=== PATIENT | female | born 1940 ===

== ENCOUNTER 2017-05-18 16:35 | Emergency (ER) | payer OTHER, MEDICARE ==
[2017-05-18 16:46] VITALS: BMI 26.5
[2017-05-18 17:05] VITALS: RESP 18
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
--- NOTE | 2017-05-18 17:55 | CT ---
PROCEDURE: CT Cervical Spine without contrast HISTORY: [facility] COMPARISON: None available. TECHNIQUE: Axial computed tomography images were obtained of the cervical spine without the use of intravenous contrast. Coronal and sagittal reformatted images were created and reviewed. Radiation dose: Total exam DLP = 422.77 mGy-cm. This CT exam was performed using one or more of the following dose reduction techniques: Automated exposure control, adjustment of the mA and/or kV according to patient size, and/or use of iterative reconstruction technique. FINDINGS: VERTEBRAE: The vertebral bodies are maintained in height. There is a geographic circumscribed lesion in the anterior C3 vertebral body with internal bony spicules most likely representing a hemangioma. There is no evidence of fracture. Normal vertebral alignment is maintained. The atlantoaxial articulation and odontoid process are intact. DISCS/SPINAL CANAL/NEURAL FORAMINA: There is narrowing of multiple intervertebral disc spaces including C4-5, C5-6 and C6-7, consistent with degenerative disc disease. PARASPINAL SOFT TISSUES: Unremarkable. OTHER FINDINGS: None. IMPRESSION: No evidence of fracture or dislocation. Multilevel degenerative disc disease. Probable hemangioma of the C3 vertebral body.
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
[2017-05-18 19:53] VITALS: BP 170/80; PULSE 78; TEMP 98.7; O2SAT 99
--- NOTE | 2017-05-19 08:09 | CARD ---
APPROVED REPORT EKG Measurement Heart [id number] <Conclusion> Normal sinus rhythm Nonspecific T wave abnormality
== END 2017-05-18 19:51 | disposition home or self-care (01) ==
LOC: ED 16:35
DX: R07.9 Chest pain, unspecified (principal); R51 Headache; M25.511 Pain in right shoulder; S13.4XXA Sprain of ligaments of cervical spine, initial encounter; V49.59XA Passenger injured in collision with other motor vehicles in traffic accident, initial encounter; Y92.410 Unspecified street and highway as the place of occurrence of the external cause

== ENCOUNTER 2018-04-08 22:12 | Emergency (ER) | payer MEDICARE, MEDICAID ==
[2018-04-08 22:12] VITALS: BMI 26.5
[2018-04-08 23:07] VITALS: RESP 18; TEMP 98
--- NOTE | 2018-04-08 23:20 | ED PDOC ---
Arrival/HPI - General Chief Complaint: Headache Time Seen by Provider: 04/08/18 23:03 Historian: Patient - History of Present Illness Narrative History of Present Illness (Text): 04/08/18 23:20 77 year old Martiniquais speaking female, whose past medical history includes hypertension, hypothyroid, hypercholestremia, and Asthma, presents to the emergency department accompanied by her son, complaining of a worsening lesion to the back of the head and a headache for a couple weeks. Patient has an appointment with her PMD in 2 weeks. upon arrival, pt states mckenzie is very mild. pt is offered lab tests and imaging, but patient refused stating she will just followup with her PMD. Patient denies any fever, chills, chest pain, shortness of breath, nausea, vomiting, diarrhea, urinary symptoms, back pain, neck pain, dizziness, or any other complaints. refuses further w/u in er. PMD: Dr. 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) - Renal Hx Renal Failure: Yes - Endocrine/Metabolic Hx Hypothyroidism: Yes - Hematological/Oncological Hx Blood Transfusions: No Hx Blood Transfusion Reaction: No - Musculoskeletal/Rheumatological Hx Musculoskeletal Disorders: No Hx Falls: No - Genitourinary/Gynecological Hx Genitourinary Disorders: Yes (CEASEAREAN SECTION X1) - Psychiatric Hx Depression: No Hx Emotional Abuse: No Hx Physical Abuse: No Hx Substance Use: No - Past Surgical History Past Surgical History: No Previous - Surgical History Hx Cardiac Catheterization: Yes (2001) - Anesthesia Hx Anesthesia Reactions: (UNKNOWN) Hx Malignant Hyperthermia: No - Suicidal Assessment Feels Threatened In Home Enviroment: No Family/Social History - Physician Review Nursing Documentation Reviewed: Yes Family/Social History: No Known Family HX Smoking Status: Never Smoked Hx Alcohol Use: No Hx Substance Use: No Hx Substance Use Treatment: No Allergies/Home Meds Allergies/Adverse Reactions: Allergies FISH Allergy (Verified 04/08/18 23:03) RASH iodine Allergy (Verified 05/18/17 16:46) RASH shellfish derived Allergy (Verified 05/18/17 16:46) RASH Home Medications: Home Meds Medication Instructions Recorded Confirmed Aspirin [Aspir 81] 81 mg PO DAILY 11/30/13 04/08/18 Ezetimibe [Zetia] 10 mg PO DAILY 11/22/15 04/08/18 Olmesartan/Hydrochlorothiazide 1 tab PO DAILY 11/22/15 04/08/18 [Benicar Hct 40-12.5 mg Tablet] RX: Albuterol HFA [Ventolin HFA 90 1 puff INH PRN PRN 11/22/15 04/08/18 mcg/actuation (8 g)] Levothyroxine Sodium [Levoxyl] 75 mcg PO DAILY 05/18/17 04/08/18 Metoprolol Tartrate [Lopressor] 50 mg PO DAILY 05/18/17 04/08/18 Review of Systems - Physician Review All systems were reviewed & negative as marked: Yes - Review of Systems Constitutional: absent: Fevers, Other (Chills) Respiratory: absent: SOB Cardiovascular: absent: Chest Pain Gastrointestinal: absent: Diarrhea, Nausea, Vomiting Genitourinary Female: absent: Dysuria, Frequency, Hematuria Skin: Skin Lesions (back of head) Neurological: Headache. absent: Dizziness Physical Exam Vital Signs Reviewed: Yes Vital Signs Temp Pulse Resp BP Pulse Ox 04/08/18 23:03 98 F 72 18 167/83 H 99 Temperature: Afebrile Blood Pressure: Hypertensive Pulse: Regular Respiratory Rate: Normal Appearance: Positive for: Well-Appearing, Non-Toxic, Comfortable Pain Distress: None Mental Status: Positive for: Alert and Oriented X 3 - Systems Exam Head: Present: Atraumatic, Normocephalic, Other (lesion to back of the head) Pupils: Present: PERRL Extroacular Muscles: Present: EOMI Conjunctiva: Present: Normal Mouth: Present: Moist Mucous Membranes Neck: Present: Normal Range of Motion Respiratory/Chest: Present: Clear to Auscultation, Good Air Exchange. No: Respiratory Distress, Accessory Muscle Use Cardiovascular: Present: Regular Rate and Rhythm, Normal S1, S2. No: Murmurs Abdomen: No: Tenderness, Distention, Peritoneal Signs Back: Present: Normal Inspection Upper Extremity: Present: Normal Inspection. No: Cyanosis, Edema Lower Extremity: Present: Normal Inspection. No: Edema Neurological: Present: GCS=15, CN II-XII Intact, Speech Normal Skin: Present: Warm, Dry, Normal Color. No: Rashes Psychiatric: Present: Alert, Oriented x 3, Normal Insight, Normal Concentration Medical Decision Making ED Course and Treatment: 04/08/18 23:20 Impression: 77 year old female presents complaining of mild headache and lesion to the back of her head x 3 weeks. need outpt w/u. no thunderclap features. sytmposm x weeks neuro intact. declines zamora in er. Plan: -- Reassess and disposition Progress Notes: Offered patient lab test and imaging, but patient refused. Patient states she will just go followup with her PMD. 04/08/18 23:30 I have discussed the plan with the patient, who expresses understanding. Patient given the opportunity to ask question, all questions were answered and there is agreement with the plan to discharge the patient home. Patient is stable for discharge. Patient was instructed to follow up with physician or return if symptoms persist/worsen or new concerning symptoms arise. 04/09/18 02:40 - Scribe Statement The provider has reviewed the documentation as recorded by the Austin Chung Provider Scribe Attestation: All medical record entries made by the Scribe were at my direction and personally dictated by me. I have reviewed the chart and agree that the record accurately reflects my personal performance of the history, physical exam, medical decision making, and the department course for this patient. I have also personally directed, reviewed, and agree with the discharge instructions and disposition. Disposition/Present on Arrival - Present on Arrival Any Indicators Present on Arrival: No History of DVT/PE: No History of Uncontrolled Diabetes: No Urinary Catheter: No History of Decub. Ulcer: No History Surgical Site Infection Following: None - Disposition Have Diagnosis and Disposition been Completed?: Yes Diagnosis: Headache, Scalp lesion Disposition: HOME/ ROUTINE Disposition Time: 23:00 Condition: STABLE Discharge Instructions (ExitCare): Headache, Adult Additional Instructions: please follow up with your doctor/clinic. you are declining any lab test or imaging at this time, but you are able to return to any er with any concern at any time. Prescriptions: Acetaminophen/Butalbital/Caf [Fioricet] 1 tab PO Q8 PRN #10 tab PRN Reason: Headache Referrals: Chucky Cosby MD [Staff Provider] - Follow up with primary Forms: [employer] (Kyrgyz)
[2018-04-09 00:10] VITALS: BP 151/58; PULSE 75; O2SAT 100
== END 2018-04-08 23:30 | disposition home or self-care (01) ==
LOC: ED 22:12
DX: L98.8 Other specified disorders of the skin and subcutaneous tissue (principal); R51 Headache

== ENCOUNTER 2018-09-19 21:34 | Observation (INO) | payer MEDICARE, MEDICAID ==
[2018-09-19 21:34] VITALS: BMI 26.5
--- NOTE | 2018-09-19 21:56 | ED PDOC ---
Arrival/HPI - General Chief Complaint: Chest Pain Time Seen by Provider: 09/19/18 21:39 Historian: Patient - History of Present Illness Narrative History of Present Illness (Text): 09/19/18 21:53 78 year old Thai speaking female, whose past medical history includes hypertension, hypothyroid, hypercholestremia, and Asthma, presents to the emergency department accompanied by her grandson, complaining of intermittent chest discomfort throughout the day. Patient informs of some associated intermittent shortness of breath. Patient denies any leg pain, back pain, fever, chills, cough, or any other complaints. PMD: Dr. 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) - Renal Hx Renal Failure: Yes - Endocrine/Metabolic Hx Hypothyroidism: Yes - Hematological/Oncological Hx Blood Transfusions: No Hx Blood Transfusion Reaction: No - Musculoskeletal/Rheumatological Hx Musculoskeletal Disorders: No Hx Falls: No - Genitourinary/Gynecological Hx Genitourinary Disorders: Yes (CEASEAREAN SECTION X1) - Psychiatric Hx Depression: No Hx Emotional Abuse: No Hx Physical Abuse: No Hx Substance Use: No - Past Surgical History Past Surgical History: No Previous - Surgical History Hx Cardiac Catheterization: Yes (2001) - Anesthesia Hx Anesthesia Reactions: (UNKNOWN) Hx Malignant Hyperthermia: No - Suicidal Assessment Feels Threatened In Home Enviroment: No Family/Social History - Physician Review Nursing Documentation Reviewed: Yes Family/Social History: No Known Family HX Smoking Status: Never Smoked Hx Alcohol Use: No Hx Substance Use: No Hx Substance Use Treatment: No Allergies/Home Meds Allergies/Adverse Reactions: Allergies FISH Allergy (Verified 09/19/18 21:40) RASH iodine Allergy (Verified 09/19/18 21:40) RASH shellfish derived Allergy (Verified 09/19/18 21:40) RASH Home Medications: Home Meds Medication Instructions Recorded Confirmed Aspirin [Aspir 81] 81 mg PO DAILY 11/30/13 09/19/18 Albuterol HFA [Ventolin HFA 90 1 puff INH PRN PRN 11/22/15 09/19/18 mcg/actuation (8 g)] Olmesartan/Hydrochlorothiazide 1 tab PO DAILY 11/22/15 09/19/18 [Benicar Hct 40-12.5 mg Tablet] Levothyroxine Sodium [Levoxyl] 75 mcg PO DAILY 05/18/17 09/19/18 Metoprolol Tartrate [Lopressor] 50 mg PO DAILY 05/18/17 09/19/18 Levocetirizine Dihydrochloride 5 mg PO DAILY 09/19/18 09/19/18 [Xyzal] Meclizine HCl 12.5 mg PO BID 09/19/18 09/19/18 Montelukast [Singulair] 10 mg PO DAILY 09/19/18 09/19/18 Simvastatin [Zocor] 20 mg PO DAILY 09/19/18 09/19/18 Review of Systems - Physician Review All systems were reviewed & negative as marked: Yes - Review of Systems Constitutional: absent: Fevers, Night Sweats Respiratory: absent: Cough Cardiovascular: Chest Pain. absent: Calf Pain Musculoskeletal: absent: Back Pain Physical Exam Vital Signs Reviewed: Yes Vital Signs Temp Pulse Resp BP Pulse Ox 09/19/18 21:45 98.2 F 117 H 18 155/83 H 100 Temperature: Afebrile Blood Pressure: Hypertensive Pulse: Tachycardic Respiratory Rate: Normal Appearance: Positive for: Well-Appearing, Non-Toxic, Comfortable Pain Distress: None Mental Status: Positive for: Alert and Oriented X 3 - Systems Exam Head: Present: Atraumatic, Normocephalic Pupils: Present: PERRL Extroacular Muscles: Present: EOMI Conjunctiva: Present: Normal Mouth: Present: Moist Mucous Membranes Neck: Present: Normal Range of Motion Respiratory/Chest: Present: Clear to Auscultation, Good Air Exchange. No: Respiratory Distress, Accessory Muscle Use Cardiovascular: Present: Normal S1, S2, Tachycardic. No: Murmurs Abdomen: No: Tenderness, Distention, Peritoneal Signs Back: Present: Normal Inspection Upper Extremity: Present: Normal Inspection. No: Cyanosis, Edema Lower Extremity: Present: Normal Inspection. No: Edema, CALF TENDERNESS, Iliana's Sign Neurological: Present: GCS=15, CN II-XII Intact, Speech Normal Skin: Present: Warm, Dry, Normal Color. No: Rashes Psychiatric: Present: Alert, Oriented x 3, Normal Insight, Normal Concentration Medical Decision Making ED Course and Treatment: 09/19/18 22:01 Impression: 78 year old female presents with chest pain Plan: -- EKG -- Cardiac Iso, CMP, BNP -- CBC, D dimer, Platelets -- Chest X-ray -- Reassess and disposition Prior Visits: Notes and results from previous visits were reviewed. Progress Notes: EKG Reviewed by me, shows: Sinus tachycardia @118 bpm No acute changes 09/20/18 00:06 Case discussed with house doctor and Dr Anne who accept patient to hospitalist service. - Scribe Statement The provider has reviewed the documentation as recorded by the Lisaibe Chencho Weston Provider Scribe Attestation: All medical record entries made by the Scribe were at my direction and personally dictated by me. I have reviewed the chart and agree that the record accurately reflects my personal performance of the history, physical exam, medical decision making, and the department course for this patient. I have also personally directed, reviewed, and agree with the discharge instructions and disposition. Disposition/Present on Arrival - Present on Arrival Any Indicators Present on Arrival: No History of DVT/PE: No History of Uncontrolled Diabetes: No Urinary Catheter: No History of Decub. Ulcer: No History Surgical Site Infection Following: None - Disposition Have Diagnosis and Disposition been Completed?: Yes Diagnosis: Chest pain Disposition: HOSPITALIZED Disposition Time: 23:38 Patient Problems: Current Active Problems Problem Status Onset Chest pain Acute Condition: STABLE
[2018-09-19 22:59] LABS: HEMOGLOBIN 10.9 g/dL (12.0-16.0); MEAN CORPUSCULAR HEMOGLOBIN 29.1 pg (25.0-35.0); MEAN CORPUSCULAR HGB CONC 32.7 g/dl (31.0-37.0); RBC 3.74 10^6/uL (3.5-6.1); RED CELL DISTRIBUTION WIDTH 14.4 % (11.5-14.5); WHITE BLOOD COUNT 9.7 10^3/uL (4.5-11.0)
[2018-09-19 23:09] LABS: ALB/GLOB RATIO 1.1 (1.1-1.8); ALBUMIN 4.3 g/dL (3.0-4.8); ALT/SGPT 18 U/L (7-56); AST/SGOT 29 U/L (14-36); BLOOD UREA NITROGEN 35 mg/dL (7-21); CALCIUM 9.4 mg/dL (8.4-10.5); GFR NON-AFRICAN AMERICAN 40; INR 1.05; PARTIAL THROMBOPLASTIN TIME 29.5 Seconds (26.9-38.3); PROTHROMBIN TIME 11.6 SECONDS (9.4-12.5)
[2018-09-19 23:20] LABS: B-TYPE NATRIURETIC PEPTIDE 403 pg/mL (0-450); TROPONIN I < 0.01 ng/mL
--- NOTE | 2018-09-20 01:39 | CP.PCM.HP ---
<Mohsen Benavidez - Last Filed: 09/20/18 02:09> History of Present Illness - History of Present Illness History of Present Illness: PGY-1 History and Physical for Dr[address] Anne Patient is a 78 year old female with PMHx hypertension, CAD, hypothyroidism, hyperlipidemia, vertigo who presents with chief complaint of chest pain and dizziness. Patient states experiencing these symptoms for about one week. Patient notes that for past couple of weeks, she realizes she had been taking her allergy medications instead of her blood pressure medications. She complains of chest tightness and pressure across the front of her chest 6/10, non-radiating, as well as mild lightheadedness. She denies any cardiac history, though did have a cath in the past and was prescribed daily ASA which she no longer takes. Patient also reports occasional palpitations. Denies syncope, nausea, vomiting, shortness of breath. PMHx: HTN, hypothyroidism, CAD, hyperlipidemia, vertigo All: Fish, iodine, shellfish Surgeries: Cardiac cath 2013 Social: Denies alcohol, tobacco, drug use Family Hx: Noncontributory Medications -ASA 81 MG PO daily -Benicar (olmesartab/HCTZ) 40/12.5 mg PO daily -Ventolin 1 puff INH prn -Lopressor 50 mg PO daily -Levothyroxine 75 mcg PO daily -Zocor 20 mg PO daily -Meclizine 12.5 mg PO daily -Singluair 10 mg PO daily -Xyzal 5mg PO daily PMD: Dr. Sisi Limon Present on Admission - Present on Admission Any Indicators Present on Admission: No Review of Systems - Constitutional Constitutional: absent: Chills, Fever - EENT Eyes: absent: Blurred Vision, Change in Vision Nose/Mouth/Throat: absent: Nasal Congestion, Nasal Discharge - Cardiovascular Cardiovascular: Chest Pain, Chest Pain at Rest, Lightheadedness, Palpitations. absent: Dyspnea, Pedal Edema - Respiratory Respiratory: absent: Cough, Hemoptysis - Gastrointestinal Gastrointestinal: absent: Abdominal Pain, Diarrhea, Nausea, Vomiting - Genitourinary Genitourinary: absent: Dysuria, Flank Pain - Musculoskeletal Musculoskeletal: absent: Back Pain, Neck Pain - Neurological Neurological: absent: Dizziness, Numbness, Focal Weakness - Psychiatric Psychiatric: absent: Anxiety, Depression - Hematologic/Lymphatic Hematologic: absent: Easy Bleeding, Easy Bruising Past Patient History - Infectious Disease Hx of Infectious Diseases: None - Tetanus Immunizations Tetanus Immunization: Unknown - Past Social History Smoking Status: Never Smoked - CARDIAC Hx Hypertension: Yes Hx Peripheral Edema: Yes Other/Comment: cardiac cath - PULMONARY Hx Asthma: Yes - NEUROLOGICAL Hx Neurological Disorder: Yes (VERTIGO) Hx Dizziness: Yes - HEENT Hx HEENT Problems: (WEARS RX GLASSES) 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) - RENAL Hx Renal Failure: Yes - ENDOCRINE/METABOLIC Hx Hypothyroidism: Yes - HEMATOLOGICAL/ONCOLOGICAL Hx Blood Transfusions: No Hx Blood Transfusion Reaction: No - MUSCULOSKELETAL/RHEUMATOLOGICAL Hx Musculoskeletal Disorders: No Hx Falls: No - GENITOURINARY/GYNECOLOGICAL Hx Genitourinary Disorders: Yes (CEASEAREAN SECTION X1) - PSYCHIATRIC Hx Depression: No Hx Emotional Abuse: No Hx Physical Abuse: No Hx Substance Use: No - SURGICAL HISTORY Hx Cardiac Catheterization: Yes (2001) - ANESTHESIA Hx Anesthesia Reactions: (UNKNOWN) Hx Malignant Hyperthermia: No Meds Allergies/Adverse Reactions: Allergies Allergy/AdvReac Type Severity Reaction Status Date / Time FISH Allergy RASH Verified 09/19/18 21:40 iodine Allergy RASH Verified 09/19/18 21:40 shellfish derived Allergy RASH Verified 09/19/18 21:40 Physical Exam - Constitutional Appears: Non-toxic, No Acute Distress - Head Exam Head Exam: ATRAUMATIC, NORMOCEPHALIC - Eye Exam Eye Exam: EOMI - ENT Exam ENT Exam: Mucous Membranes Moist - Respiratory Exam Respiratory Exam: Clear to Auscultation Bilateral, NORMAL BREATHING PATTERN. absent: Rhonchi, Wheezes - Cardiovascular Exam Cardiovascular Exam: Tachycardia, +S1, +S2 - GI/Abdominal Exam GI & Abdominal Exam: Normal Bowel Sounds, Soft. absent: Tenderness - Extremities Exam Extremities exam: Positive for: normal inspection. Negative for: pedal edema, tenderness - Neurological Exam Neurological exam: Alert, CN II-XII Intact, Oriented x3 - Psychiatric Exam Psychiatric exam: Normal Affect, Normal Mood - Skin Skin Exam: Dry, Intact Results - Vital Signs Recent Vital Signs: Last Vital Signs Temp 98.2 F 09/19/18 21:45 Pulse 93 H 09/19/18 23:51 Resp 18 09/19/18 23:51 BP 125/61 09/19/18 23:51 Pulse Ox 100 09/19/18 23:51 - Labs Result Diagrams: 09/19/18 22:54 09/19/18 22:54 Labs: Laboratory Results - last 24 hr 09/19/18 09/19/18 09/19/18 22:54 22:54 22:54 WBC 9.7 D RBC 3.74 Hgb 10.9 L Hct 33.3 L MCV 89.0 MCH 29.1 MCHC 32.7 RDW 14.4 Plt Count 319 MPV 10.0 PT 11.6 INR 1.05 APTT 29.5 D-Dimer, Quantitative 296 H Sodium 139 Potassium 4.1 Chloride 102 Carbon Dioxide 28 Anion Gap 14 BUN 35 H Creatinine 1.3 H Est GFR ( Amer) 48 Est GFR (Non-Af Amer) 40 Random Glucose 113 H Calcium 9.4 Total Bilirubin 0.3 AST 29 ALT 18 Alkaline Phosphatase 85 Lactate Dehydrogenase 460 Total Creatine Kinase 92 Troponin I < 0.01 NT-Pro-B Natriuret Pep 403 Total Protein 8.1 Albumin 4.3 Globulin 3.8 Albumin/Globulin Ratio 1.1 Assessment & Plan - Assessment and Plan (Free Text) Assessment: Symptomatic Hypertension - rule out ACS, PE -Initial EKG - sinus tach. Troponins WNL -F/u repeat AM EKG -Serial troponins 23:00, 05:00 - f/u -V/Q scan to r/o PE (CTA c/i due to iodine allergy) - f/u -2d echo - f/u -CXR - f/u official read -Daily labs -Lipid panel -A1C -ASA 81 mg PO daily --ASA 325 mg given once in ED -Lipitor 10 mg PO DIN HTN -HCTZ 12.5 mg PO daily -Losartan 100mg PO daily -Metoprolol 25 mg PO daily Hypothyroidism -Levothyroxine 75 mcg PO daily -TSH/free T4 - f/u Hyperlipidemia -Lipitor 10 mg PO DIN Vertigo -Meclizine 12.5 mg PO BID Asthma -Singulair 10 mg PO HS PPx -DVT - Heparin 5000 U Q12 SC daily -HHD Assessment and plan discussed with Dr. Dayana Benavidez, PGY-1 <Conrado Anne - Last Filed: 09/20/18 05:25> Results - Vital Signs Recent Vital Signs: Last Vital Signs Temp 97.6 F 09/20/18 01:53 Pulse 81 09/20/18 01:54 Resp 18 09/20/18 02:08 BP 157/89 H 09/20/18 01:53 Pulse Ox 98 09/20/18 01:53 - Labs Result Diagrams: 09/19/18 22:54 09/19/18 22:54 Labs: Laboratory Results - last 24 hr 09/19/18 09/19/18 09/19/18 22:54 22:54 22:54 WBC 9.7 D RBC 3.74 Hgb 10.9 L Hct 33.3 L MCV 89.0 MCH 29.1 MCHC 32.7 RDW 14.4 Plt Count 319 MPV 10.0 PT 11.6 INR 1.05 APTT 29.5 D-Dimer, Quantitative 296 H Sodium 139 Potassium 4.1 Chloride 102 Carbon Dioxide 28 Anion Gap 14 BUN 35 H Creatinine 1.3 H Est GFR ( Amer) 48 Est GFR (Non-Af Amer) 40 Random Glucose 113 H Calcium 9.4 Total Bilirubin 0.3 AST 29 ALT 18 Alkaline Phosphatase 85 Lactate Dehydrogenase 460 Total Creatine Kinase 92 Troponin I < 0.01 NT-Pro-B Natriuret Pep 403 Total Protein 8.1 Albumin 4.3 Globulin 3.8 Albumin/Globulin Ratio 1.1 Attending/Attestation - Attestation I have personally seen and examined this patient.: Yes I have fully participated in the care of the patient.: Yes I have reviewed all pertinent clinical information: Yes Notes (Text): Patient seen and examined with the residents, agree with above. Presents with atypical chest pain that has resolved Seems like she was taking her allergy medication instead of her bp medications. Mild tachycardia as she was not taking her bblocker. Lopressor should be dosed as bid instead of the once daily she is taking Initial trop negative, will continue to trend. EKG with no acute ischemic changes appreciated. Mild pitting edema of the lower ext despite taking her diuretic. Will f/u on an echo. Tele monitoring. If symptoms persist, may consider Cardio evaluation. Continue with ASA.
[2018-09-20] MEDS: Levothyroxine 75 MCG TAB PO SCH (05:14)
[2018-09-20 07:13] LABS: TROPONIN I < 0.01 ng/mL
[2018-09-20 07:40] LABS: HDL CHOLESTEROL 60 mg/dL (29-60)
[2018-09-20 07:51] LABS: LDL CHOLESTEROL 99 mg/dL (0-129)
--- NOTE | 2018-09-20 07:57 | RAD ---
Date of service: 09/19/2018 HISTORY: chest pain COMPARISON: 05/18/2017 TECHNIQUE: 1 view obtained. FINDINGS: LUNGS: No active pulmonary disease. PLEURA: No significant pleural effusion identified, no pneumothorax apparent. CARDIOVASCULAR: No aortic atherosclerotic calcification present. Normal cardiac size. No pulmonary vascular congestion. OSSEOUS STRUCTURES: No significant abnormalities. VISUALIZED UPPER ABDOMEN: Normal. OTHER FINDINGS: None. IMPRESSION: No active disease.
[2018-09-20 09:46] LABS: BASO # 0.03 K/mm3 (0.0-2.0); BASO % 0.4 % (0.0-3.0); EOS # 0.8 (0.0-0.7); EOS % 9.9 % (1.5-5.0); HEMOGLOBIN 11.1 g/dL (12.0-16.0); LYMPH # 2.6 (1.2-3.4); LYMPH % 30.7 % (22.0-35.0); MEAN CELL VOLUME 89.4 fl (80.0-105.0); MEAN CORPUSCULAR HEMOGLOBIN 28.7 pg (25.0-35.0); MEAN CORPUSCULAR HGB CONC 32.1 g/dl (31.0-37.0); MEAN PLATELET VOLUME 10.2 fl (7.0-11.0); MONO # 0.6 (0.1-0.6); MONO % 7.3 % (1.0-6.0); RBC 3.87 10^6/uL (3.5-6.1); RED CELL DISTRIBUTION WIDTH 14.4 % (11.5-14.5); WHITE BLOOD COUNT 8.4 10^3/uL (4.5-11.0)
[2018-09-20 09:55] LABS: BLOOD UREA NITROGEN 34 mg/dL (7-21); CALCIUM 9.3 mg/dL (8.4-10.5); GFR NON-AFRICAN AMERICAN 44
[2018-09-20] MEDS ORDERED: Non Formulary Medication (Olmesartan/Hydrochlorothiazide [Benicar Hct 40-12.5 Mg Tablet] 1 PO SCH (10:00)
--- NOTE | 2018-09-20 11:44 | NM ---
Date of service: 09/19/2018 COMPARISON: Portable chest same day TECHNIQUE: 30.0 mCi technetium 99-m DTPA aerosol. 3.4 mCI technetium 99-m MAA administered intravenously. FINDINGS: VENTILATION COMPONENT: Normal. PERFUSION COMPONENT: Normal. The report concurs with the preliminary [facility] report IMPRESSION: Lowprobability ventilation perfusion scan for pulmonary embolism.
--- NOTE | 2018-09-20 12:28 | CARD ---
APPROVED REPORT Date of service: 09/20/2018 EKG Measurement Heart [id number] <Conclusion> Normal sinus rhythm T wave abnormality, consider lateral ischemia Prolonged QT Abnormal ECG
--- NOTE | 2018-09-20 12:30 | CARD ---
APPROVED REPORT Date of service: 09/19/2018 EKG Measurement Heart [id number] <Conclusion> Sinus tachycardia Otherwise normal ECG
[2018-09-20] MEDS ORDERED: Sodium Chloride 0.9% 1,000 ML IV SCH (15:30)
--- NOTE | 2018-09-20 18:14 | CON ---
DATE: 09/20/2018 CARDIOLOGY CONSULTATION REASON FOR CONSULTATION: Chest pain. HISTORY OF PRESENT ILLNESS: History was obtained from the patient via a optical effects layout person, who is her grandson at the bedside. The patient is a 78-year-old female, who has a history of hypertension, hypothyroidism, hyperlipidemia, who presented because of chest discomfort associated with shortness of breath. The patient is unable to describe the character of her chest pain. The patient underwent cardiac catheterization in November 2013, which revealed at this time 80% stenosis of a small diagonal branch with normal ejection fraction. SOCIAL HISTORY: Nonsmoker, nondrinker. MEDICATIONS: Cozaar 100 mg once a day, aspirin 81 mg once a day, heparin 5000 units subcutaneously every 12 hours, Lipitor 10 mg once a day, Lopressor 50 mg once a day, hydrochlorothiazide 12.5 mg once a day, Singulair 10 mg once a day, Synthroid 75 mcg once a day. REVIEW OF SYSTEMS: No fever or chills, no nausea or vomiting. No dizziness or syncope at this time. PHYSICAL EXAMINATION: GENERAL: The patient is an elderly female who does not appear to be in acute distress. VITAL SIGNS: Blood pressure 117/68, heart rate 80, temperature 97.9, respirations 20. HEENT: Normocephalic. CHEST: Clear. HEART: S1, S2 regular. ABDOMEN: Soft. EXTREMITIES: No edema. LABORATORY DATA: Today's hemoglobin and hematocrit 11.1 and 34.6, white count and platelet count are within normal limits. SMA-7 today is within normal limits except for BUN of 34. Two sets of troponins are negative. Lipid profile is within normal limits. Today's TSH level is within normal limits. EKG revealed sinus rhythm with lateral ischemic T-wave changes. ASSESSMENT: 1. Chest pain, myocardial infarction is ruled out. 2. Lateral ischemia by the EKG. 3. Hypertension, hypothyroidism, and hyperlipidemia. RECOMMENDATIONS: 1. Continue aspirin 81 mg once a day, Lopressor 50 mg once a day, Synthroid 75 mcg once a day, Plavix 75 mg once a day. 2. Obtain an echocardiographic study. 3. Cardiac catheterization will be presented to the patient and her family. King Hannallah, MD
--- NOTE | 2018-09-20 20:27 | CARD ---
APPROVED REPORT Date of service: 09/20/2018 EXAM: Two-dimensional and M-mode echocardiogram with Doppler and color Doppler. INDICATION Chest Pain 2D DIMENSIONS Left Atrium (2D)3.4 (1.6-4.0cm)IVSd1.1 (0.7-1.1cm) LVDd3.4 (3.9-5.9cm)PWd1.2 (0.7-1.1cm) LVDs2.2 (2.5-4.0cm)FS (%) 34.5 % LVEF (%)64.7 (>50%) M-Mode DIMENSIONS Aortic Root3.10 (2.2-3.7cm)Aortic Cusp Exc.1.50 (1.5-2.0cm) Aortic Valve AoV Peak Mbtlnxvs562.0cm/Efrain Peak GR.9mmHgLVOT Peak Jsdcowmm385.0cm/s LVOT VTI21.80cm Mitral Valve E/A ratio0.0 TDI E/Lateral E'0.0E/Medial E'0.0 Pulmonary Valve PV Peak Xeqrlgcc872.0cm/sPV Peak Grad.6mmHg Tricuspid Valve TR Peak [id number]/sRAP [id number] Peak Gr.19mmHg [id number] LEFT VENTRICLE The left ventricle is normal size. There is borderline concentric left ventricular hypertrophy. The left ventricular function is normal.EF-65% There is normal LV segmental wall motion. Transmitral Doppler flow pattern is Grade III-reversible restrictive diastolic dysfunction. No left ventricle thrombus noted on this study. There is no ventricular septal defect visualized. There is no left ventricular aneurysm. There is no mass noted in the left ventricle. RIGHT VENTRICLE The right ventricle is normal size. There is normal right ventricular wall thickness. The right ventricular systolic function is normal. ATRIA The left atrium size is normal. The right atrium size is normal. The interatrial septum is intact with no evidence for an atrial septal defect. AORTIC VALVE The aortic valve is moderately thickened. The aortic valve is moderately sclerotic. There is trivial aortic regurgitation. There is no aortic valvular stenosis. There is no aortic valvular vegetation. MITRAL VALVE The mitral valve is thickened but opens well. Mitral annular calcification is mild to moderate. Mitral regurgitation is trace to mild. There is no mitral valve stenosis. There is no evidence of mitral valve prolapse. TRICUSPID VALVE The tricuspid valve leaflets are thickened , but open well. There is trace to mild tricuspid regurgitation.RVSP-29 mmof Hg. There is no tricuspid valve stenosis. There is no tricuspid valve prolapse or vegetation. PULMONIC VALVE The pulmonary valve is normal in structure. There is trivial pulmonic valvular regurgitation. There is no pulmonic valvular stenosis. GREAT VESSELS The aortic root is normal in size. The ascending aorta is normal in size. The pulmonary artery is normal. The IVC is normal in size and collapses >50% with inspiration. PERICARDIAL EFFUSION There is no pleural effusion. There is no pericardial effusion. <Conclusion> Normal chamber Size. EF-65% There is trivial aortic regurgitation. Mitral regurgitation is trace to mild. There is trace to mild tricuspid regurgitation.RVSP-29 mmof Hg. There is trivial pulmonic valvular regurgitation. The IVC is normal in size and collapses >50% with inspiration. There is no pericardial effusion. No vegetyation or thrombus noted.
[2018-09-21 06:20] VITALS: RESP 20; TEMP 98.2; O2SAT 97
[2018-09-21 06:26] LABS: BASO # 0.03 K/mm3 (0.0-2.0); BASO % 0.3 % (0.0-3.0); EOS # 1.1 (0.0-0.7); HEMOGLOBIN 11.9 g/dL (12.0-16.0); LYMPH # 2.4 (1.2-3.4); LYMPH % 27.4 % (22.0-35.0); MEAN CELL VOLUME 89.3 fl (80.0-105.0); MEAN CORPUSCULAR HEMOGLOBIN 28.9 pg (25.0-35.0); MEAN CORPUSCULAR HGB CONC 32.3 g/dl (31.0-37.0); MEAN PLATELET VOLUME 9.5 fl (7.0-11.0); MONO # 0.5 (0.1-0.6); MONO % 6.3 % (1.0-6.0); RBC 4.12 10^6/uL (3.5-6.1); RED CELL DISTRIBUTION WIDTH 14.1 % (11.5-14.5); WHITE BLOOD COUNT 8.6 10^3/uL (4.5-11.0)
[2018-09-21 06:31] LABS: INR 1.09; PARTIAL THROMBOPLASTIN TIME 29.3 Seconds (26.9-38.3); PROTHROMBIN TIME 12.3 SECONDS (9.4-12.5)
[2018-09-21 06:58] LABS: ALB/GLOB RATIO 1.1 (1.1-1.8); CALCIUM 9.5 mg/dL (8.4-10.5)
[2018-09-21] MEDS: Levothyroxine 75 MCG TAB PO SCH (06:59)
[2018-09-21 09:08] VITALS: BP 146/78
[2018-09-21 09:58] VITALS: PULSE 87
--- NOTE | 2018-09-21 11:42 | CP.PCM.DIS ---
<Stephane Glover - Last Filed: 09/21/18 12:59> Provider - Provider Date of Admission: 09/20/18 16:08 Attending physician: Nu Gonzalez MD Primary care physician: Yaniv Laird MD Consults: 09/20/18 08:57 Cardiology Consult Routine Comment: Consulting Provider: King Bazan Consulting Physician: King Bazan Reason for Consult: chest pain; hx of CAD Time Spent in preparation of Discharge (in minutes): 60 Hospital Course - Lab Results Lab Results: Most Recent Lab Values WBC 8.6 10^3/uL (4.5-11.0) 09/21/18 05:30 RBC 4.12 10^6/uL (3.5-6.1) 09/21/18 05:30 Hgb 11.9 g/dL (12.0-16.0) L 09/21/18 05:30 Hct 36.8 % (36.0-48.0) 09/21/18 05:30 MCV 89.3 fl (80.0-105.0) 09/21/18 05:30 MCH 28.9 pg (25.0-35.0) 09/21/18 05:30 MCHC 32.3 g/dl (31.0-37.0) 09/21/18 05:30 RDW 14.1 % (11.5-14.5) 09/21/18 05:30 Plt Count 332 10^3/uL (120.0-450.0) 09/21/18 05:30 MPV 9.5 fl (7.0-11.0) 09/21/18 05:30 Neut % (Auto) 53.0 % (50.0-68.0) 09/21/18 05:30 Lymph % (Auto) 27.4 % (22.0-35.0) 09/21/18 05:30 [place] % (Auto) 6.3 % (1.0-6.0) H 09/21/18 05:30 Eos % (Auto) 13.0 % (1.5-5.0) H 09/21/18 05:30 Baso % (Auto) 0.3 % (0.0-3.0) 09/21/18 05:30 Lymph # (Auto) 2.4 (1.2-3.4) 09/21/18 05:30 [place] # (Auto) 0.5 (0.1-0.6) 09/21/18 05:30 Eos # (Auto) 1.1 (0.0-0.7) H 09/21/18 05:30 Baso # (Auto) 0.03 K/mm3 (0.0-2.0) 09/21/18 05:30 Absolute Neuts (auto) 4.57 (1.4-6.5) 09/21/18 05:30 PT 12.3 SECONDS (9.4-12.5) 09/21/18 05:30 INR 1.09 09/21/18 05:30 APTT 29.3 Seconds (26.9-38.3) 09/21/18 05:30 D-Dimer, Quantitative 296 ng/mlDDU (0-243) H 09/19/18 22:54 Sodium 141 mmol/L (132-148) 09/21/18 05:30 Potassium 5.0 mmol/L (3.6-5.0) 09/21/18 05:30 Chloride 104 mmol/L (98-107) 09/21/18 05:30 Carbon Dioxide 30 mmol/L (21-33) 09/21/18 05:30 Anion Gap 13 (10-20) 09/21/18 05:30 BUN 33 mg/dL (7-21) H 09/21/18 05:30 Creatinine 1.3 mg/dl (0.7-1.2) H 09/21/18 05:30 Est GFR ( Amer) 48 09/21/18 05:30 Est GFR (Non-Af Amer) 40 09/21/18 05:30 Random Glucose 97 mg/dL (70-110) 09/21/18 05:30 Hemoglobin A1c 6.1 % (4.2-6.5) 09/20/18 07:00 Calcium 9.5 mg/dL (8.4-10.5) 09/21/18 05:30 Total Bilirubin 0.3 mg/dL (0.2-1.3) 09/21/18 05:30 AST 32 U/L (14-36) 09/21/18 05:30 ALT 21 U/L (7-56) 09/21/18 05:30 Alkaline Phosphatase 73 U/L (38-126) 09/21/18 05:30 Lactate Dehydrogenase 460 U/L (333-699) 09/19/18 22:54 Total Creatine Kinase 92 U/L (35-230) 09/19/18 22:54 Troponin I < 0.01 ng/mL 09/20/18 10:55 NT-Pro-B Natriuret Pep 403 pg/mL (0-450) 09/19/18 22:54 Total Protein 7.7 g/dL (5.8-8.3) 09/21/18 05:30 Albumin 4.0 g/dL (3.0-4.8) 09/21/18 05:30 Globulin 3.7 gm/dL 09/21/18 05:30 Albumin/Globulin Ratio 1.1 (1.1-1.8) 09/21/18 05:30 Triglycerides 99 mg/dL (35-160) 09/20/18 07:00 Cholesterol 199 mg/dL (130-200) 09/20/18 07:00 LDL Cholesterol Direct 99 mg/dL (0-129) 09/20/18 07:00 HDL Cholesterol 60 mg/dL (29-60) 09/20/18 07:00 Free T4 1.15 ng/dL (0.78-2.19) 09/20/18 06:00 TSH 3rd Generation 3.43 mIU/mL (0.46-4.68) 09/20/18 07:00 - Hospital Course Hospital Course: 78 year old Pashto-speaking female with PMHx of hypertension, CAD, hypothyroidism, hyperlipidemia, asthma, and vertigo who presented with one week complaint of dizziness, chest pain, and intermittent shortness of breath. She stated the pain is located across the front of her chest and does not radiate. She described it as chest tightness with pressure. Also reported associated mild lightheadedness. Patient reported that for the past couple of weeks, she had been taking her allergy medications instead of her blood pressure medications. Patient denies cardiac history, though did have a cardiac catheterization in the 2013 which showed 80% stenosis of small diagnoal branch with normal EF. She was prescribed ASA at the time which she currently does not take. Also reported occasional palpitations In the ED, EKG was done showing sinus tachycardia at 118 bpm. Troponins, CMP, BNP, CBC, D Dimer, CXR were all ordered. Troponins x3 were negative. CXR showed no active disease. D-dimer was mildly elevated. V/Q scan was ordered (as CTA was contraindicated due to iodine allergy) which was negative for PE. Patient was admitted to hospitalist service for ACS rule out. On admission, cardiology was consulted. Echo was ordered, as well as daily labs, lipid panel, A1c, TSH/free T4. Lipid panel and thyroid function tests were within normal limits. Patient was placed on ASA 81mg PO qd. Also continued Lipitor 10 mg PO DIN, HCTZ 12.5mg PO daily, Losartan 100 mg PO daily, Metoprolol Tartrate 25 mg PO BID daily, Levothyroxine 75 mcg PO qD, Meclizine 12.5 mg PO BID, Singular 10 mg PO HS, Plavix 75mg PO qd, and Heparin 5000 Units q12 SC daily for DVT PPx. Echo showed EF 65%, Mild MR, [id number] TR, no vegetations/thrombi, no pericardial effusion Patient's repeat EKG showed possible lateral ischemia for which cardiology planned cardiac cath on this admission. Patient was informed of results and refused cardiac cath because she did not feel it was needed as her symptoms had resolved. Patient was then cleared for discharge per cardiology and instructed to follow up outpatient for further evaluation and treatment. Patient acknowledged and verbalized understanding of treatment plan. All risks and benefits were discussed. Instructions and information provided. All questions and concerns addressed. Patient to follow up with cardiology and PMD upon discharge. Patient instructed to resume home medications with addition of Metoprolol 25mg BID and Plavix 75mg PO daily. Above is a brief summary, for a detailed hospital course please refer to medical records. - Date & Time of H&P Date of H&P: 09/20/18 Time of H&P: 01:39 Discharge Exam - Head Exam Head Exam: ATRAUMATIC, NORMAL INSPECTION, NORMOCEPHALIC - Eye Exam Eye Exam: EOMI - ENT Exam ENT Exam: Mucous Membranes Moist - Respiratory Exam Respiratory Exam: NORMAL BREATHING PATTERN. absent: Accessory Muscle Use, Wheezes, Respiratory Distress - Cardiovascular Exam Cardiovascular Exam: REGULAR RHYTHM, +S1, +S2. absent: Tachycardia, Systolic Murmur - GI/Abdominal Exam GI & Abdominal Exam: Normal Bowel Sounds, Soft. absent: Tenderness - Extremities Exam Extremities exam: normal inspection, pedal pulses present - Neurological Exam Neurological exam: Alert, Oriented x3 - Psychiatric Exam Psychiatric exam: Normal Affect, Normal Mood - Skin Skin Exam: Dry, Intact, Normal Color, Warm Discharge Plan - Discharge Medications Prescriptions: Clopidogrel [Plavix] 75 mg PO DAILY 30 Days #30 tab Metoprolol Tartrate [Lopressor] 25 mg PO BID 14 Days #28 tab - Follow Up Plan Condition: STABLE Disposition: HOME/ ROUTINE Instructions: Chest Pain That Is Not Caused by the Heart (DC), Chest Pain (DC), Heart Disease in Women (DC) Additional Instructions: Please follow up with your primary medical doctor, Dr Laird, within 7 days of discharge. Please follow up with the full service supervisor, Dr Bazan, within 7 days of discharge. We have given you scripts for 2 medications: Plavix 75mg PO Metoprolol 25mg BID Please take these medications as prescribed and resume all home medications as prescribed by your primary medical doctor. If symptoms worsen, promptly return to the nearest emergency department. Referrals: Yaniv Laird [Primary Care Provider] - 7 Days King Bazan MD [Staff Provider] - 7 Days <Nu Gonzalez - Last Filed: 09/21/18 13:34> Provider - Provider Date of Admission: 09/20/18 16:08 Attending physician: Nu Gonzalez MD Primary care physician: Yaniv Laird MD Consults: 09/20/18 08:57 Cardiology Consult Routine Comment: Consulting Provider: King Bazan Consulting Physician: King Bazan Reason for Consult: chest pain; hx of CAD Hospital Course - Lab Results Lab Results: Most Recent Lab Values WBC 8.6 10^3/uL (4.5-11.0) 09/21/18 05:30 RBC 4.12 10^6/uL (3.5-6.1) 09/21/18 05:30 Hgb 11.9 g/dL (12.0-16.0) L 09/21/18 05:30 Hct 36.8 % (36.0-48.0) 09/21/18 05:30 MCV 89.3 fl (80.0-105.0) 09/21/18 05:30 MCH 28.9 pg (25.0-35.0) 09/21/18 05:30 MCHC 32.3 g/dl (31.0-37.0) 09/21/18 05:30 RDW 14.1 % (11.5-14.5) 09/21/18 05:30 Plt Count 332 10^3/uL (120.0-450.0) 09/21/18 05:30 MPV 9.5 fl (7.0-11.0) 09/21/18 05:30 Neut % (Auto) 53.0 % (50.0-68.0) 09/21/18 05:30 Lymph % (Auto) 27.4 % (22.0-35.0) 09/21/18 05:30 [place] % (Auto) 6.3 % (1.0-6.0) H 09/21/18 05:30 Eos % (Auto) 13.0 % (1.5-5.0) H 09/21/18 05:30 Baso % (Auto) 0.3 % (0.0-3.0) 09/21/18 05:30 Lymph # (Auto) 2.4 (1.2-3.4) 09/21/18 05:30 [place] # (Auto) 0.5 (0.1-0.6) 09/21/18 05:30 Eos # (Auto) 1.1 (0.0-0.7) H 09/21/18 05:30 Baso # (Auto) 0.03 K/mm3 (0.0-2.0) 09/21/18 05:30 Absolute Neuts (auto) 4.57 (1.4-6.5) 09/21/18 05:30 PT 12.3 SECONDS (9.4-12.5) 09/21/18 05:30 INR 1.09 09/21/18 05:30 APTT 29.3 Seconds (26.9-38.3) 09/21/18 05:30 D-Dimer, Quantitative 296 ng/mlDDU (0-243) H 09/19/18 22:54 Sodium 141 mmol/L (132-148) 09/21/18 05:30 Potassium 5.0 mmol/L (3.6-5.0) 09/21/18 05:30 Chloride 104 mmol/L (98-107) 09/21/18 05:30 Carbon Dioxide 30 mmol/L (21-33) 09/21/18 05:30 Anion Gap 13 (10-20) 09/21/18 05:30 BUN 33 mg/dL (7-21) H 09/21/18 05:30 Creatinine 1.3 mg/dl (0.7-1.2) H 09/21/18 05:30 Est GFR ( Amer) 48 09/21/18 05:30 Est GFR (Non-Af Amer) 40 09/21/18 05:30 Random Glucose 97 mg/dL (70-110) 09/21/18 05:30 Hemoglobin A1c 6.1 % (4.2-6.5) 09/20/18 07:00 Calcium 9.5 mg/dL (8.4-10.5) 09/21/18 05:30 Total Bilirubin 0.3 mg/dL (0.2-1.3) 09/21/18 05:30 AST 32 U/L (14-36) 09/21/18 05:30 ALT 21 U/L (7-56) 09/21/18 05:30 Alkaline Phosphatase 73 U/L (38-126) 09/21/18 05:30 Lactate Dehydrogenase 460 U/L (333-699) 09/19/18 22:54 Total Creatine Kinase 92 U/L (35-230) 09/19/18 22:54 Troponin I < 0.01 ng/mL 09/20/18 10:55 NT-Pro-B Natriuret Pep 403 pg/mL (0-450) 09/19/18 22:54 Total Protein 7.7 g/dL (5.8-8.3) 09/21/18 05:30 Albumin 4.0 g/dL (3.0-4.8) 09/21/18 05:30 Globulin 3.7 gm/dL 09/21/18 05:30 Albumin/Globulin Ratio 1.1 (1.1-1.8) 09/21/18 05:30 Triglycerides 99 mg/dL (35-160) 09/20/18 07:00 Cholesterol 199 mg/dL (130-200) 09/20/18 07:00 LDL Cholesterol Direct 99 mg/dL (0-129) 09/20/18 07:00 HDL Cholesterol 60 mg/dL (29-60) 09/20/18 07:00 Free T4 1.15 ng/dL (0.78-2.19) 09/20/18 06:00 TSH 3rd Generation 3.43 mIU/mL (0.46-4.68) 09/20/18 07:00 Attending/Attestation - Attestation I have personally seen and examined this patient.: Yes I have fully participated in the care of the patient.: Yes I have reviewed all pertinent clinical information, including history, physical exam and plan: Yes Notes (Text): 09/21/18 13:26 78 year old female with past medical history of CAD, hypertension, and hypothyroidism who presented with complaint of chest pain and shortness of breath. D-dimer was elevated however VQ scan is negative. EKG showed lateral lead changes however serial cardiac enzymes were negative. Echocardiogram was reviewed. She was started on plavix in addition to her aspirin and offered cardiac cath by cardiology which patient refused. She denies any chest pain now. Patient is discharged home to follow up with pmd. Follow up with cardiology. Counselled on medication compliance. Nu Gonzalez MD Hospitalist.
--- NOTE | 2018-09-21 13:36 | PN ---
DATE: 09/21/2018 SUBJECTIVE: The patient denies any chest pain. PHYSICAL EXAMINATION: VITAL SIGNS: Blood pressure 146/78, heart rate 78, temperature 98.2, respirations 20. HEENT: Normocephalic. CHEST: Clear. HEART: S1 and S2 regular. EXTREMITIES: No edema. LABORATORY DATA: Today's BUN and creatinine are 33 and 1.3 respectively. The rest of SMA-7 is within normal limits. Today's hemoglobin and hematocrit 11.9 and 36.8. White count and platelet count are within normal limits. DIAGNOSTIC DATA: Echocardiographic study revealed normal ejection fraction, trace to mild mitral insufficiency. ASSESSMENT: 1. Chest pain and lateral ischemic T wave changes with history of small diagonal branch disease on a cardiac catheterization few years ago. 2. Chronic renal insufficiency. 3. Hypertension, hyperlipidemia and hypothyroidism. RECOMMENDATIONS: Cardiac catheterization was presented to the patient and the family, specifically the patient's grandson. The patient refused the idea of cardiac catheterization and will be discharged on current medical management including Cozaar, aspirin, Lipitor, Lopressor, Plavix, hydrochlorothiazide and Synthroid. Case was discussed with Dr. Gonzalez, their primary physician. King Bazan MD
== END 2018-09-21 12:42 | disposition home or self-care (01) ==
LOC: ED 21:34 → ERH 23:37 → 2RSO 09-20 01:32 → INTOOBSV 09-20 16:08 → OBSVTOIN 09-20 16:08
PROVIDERS: ADMIT Internal Medicine; ATTEND Internal Medicine
DX: R07.89 Other chest pain (principal); R42 Dizziness and giddiness; I12.9 Hypertensive chronic kidney disease with stage 1 through stage 4 chronic kidney disease, or unspecified chronic kidney disease; N18.9 Chronic kidney disease, unspecified; J45.909 Unspecified asthma, uncomplicated; I25.10 Atherosclerotic heart disease of native coronary artery without angina pectoris; E78.5 Hyperlipidemia, unspecified; E03.9 Hypothyroidism, unspecified; H91.8X1 Other specified hearing loss, right ear; Z79.82 Long term (current) use of aspirin
CPT/HCPCS: 36415; 71045; 78582; 80048; 80053; 80061; 82550; 83036; 83615; 83880; 84439; 84443; 84484; 85025; 85027; 85378; 85610; 85730; 93005; 93306; 99285; G0378; J1644; J7030